=== PATIENT | female | born 1965 | race Caucasian/White ===

== ENCOUNTER 2016-10-27 10:56 | Emergency (ER) ==
[2016-10-27] MEDS ORDERED: XYLOCAINE-MPF 1% INJ ONE (11:20)
[2016-10-27] MEDS ORDERED: DIPHTHERIA/TETANUS ADULT IM ONE (11:20)
--- NOTE | 2016-10-27 12:06 | PROVIDER DOCUMENTATION ---
HPI-Animal/Snake Bite Injury - General Patient arrived via EMS?: No Source: patient - History of Present Illness-Bite Injuries Onset/Duration: abrupt, this morning Timing: reports: still present Locality of Occurance: Home Severity: mild Quality: painful Loss of Consciousness: no loss of consciousness Remembers:: injury, coming to hospital Similar Symptoms Previously?: No Recently seen or treated by another doctor?: No - Animal Bite Bite Injury Location: reports: LUE Animal:: reports: dog Appearance of Animal: appeared well Animal's Immunization Status: UTD Observation/Capture: animal is known/can be observed 10 days Context of Attack: reports: animals fighting (over meat) Severity of Bite Injury: bitten <Milad Richards - Last Filed: 10/27/16 12:00> <Desean Zacarias - Last Filed: 10/27/16 12:16> - General Chief Complaint: Animal Bite Stated Complaint: ANIMAL BITE Time Seen by Provider: 10/27/16 11:11 Allergies/Adverse Reactions: Patient Allergies Allergy/AdvReac Type Severity Reaction Status Date / Time No Known Allergies Allergy Verified 12/16/14 13:17 Home Medications: Home Medication List Medication Instructions Recorded Confirmed Last Taken Type Losartan Potassium 100 mg PO QAM 05/15/13 12/16/14 12/14/14 History Promethazine [Phenergan] 25 mg PO Q4-6H PRN PRN #20 tablet 05/15/13 12/16/14 Unknown Rx Amlodipine Besylate 10 mg PO DAILY 12/16/14 12/16/14 12/14/14 History Cetirizine HCl [Zyrtec] 10 mg PO DAILY 12/16/14 12/16/14 12/14/14 History Cholecalciferol (Vit D3) [Vitamin 5,000 unit PO DAILY 12/16/14 12/16/14 History D3] Cyclobenzaprine [Flexeril] 10 mg PO TID #20 tablet 12/16/14 Unknown Rx Omeprazole 40 mg PO DAILY 12/16/14 12/16/14 12/14/14 History Ondansetron Odt [Zofran 4 mg Odt] 4 mg PO Q6H PRN PRN 12/16/14 12/16/14 History Ondansetron Odt [Zofran 4 mg Odt] 4 mg PO Q6H PRN PRN #20 tablet 12/16/14 Unknown Rx Progesterone [Prometrium] 100 mg PO DIRECTED 12/16/14 12/16/14 Unknown History Sucralfate [Carafate] 1 gm PO BID 12/16/14 12/16/14 12/14/14 History Amoxicillin/Pot Clavulanate 875 mg PO Q12HR #14 tablet 10/27/16 Unknown Rx [Augmentin] Ibuprofen [Motrin] 800 mg PO Q8H PRN PRN #20 tablet 10/27/16 Unknown Rx - History of Present Illness-Bite Injuries Nature of Presenting Problem: patient is a 51 y/o F that presents with dog bite to left hand. patient tried to come between two dogs and meat. (Milad Richards) Review of Systems - Adult - REVIEW OF SYSTEMS - ADULT Constitutional: reports: no symptoms reported Eyes: reports: no symptoms reported Ears, Nose, Mouth & Throat: reports: no symptoms reported Cardiovascular: reports: no symptoms reported Respiratory: reports: no symptoms reported Gastrointestinal: reports: no symptoms reported Genitourinary: reports: no symptoms reported Musculoskeletal: reports: no symptoms reported Integumentary: reports: see HPI Neurological: reports: no symptoms reported Psychiatric: reports: no symptoms reported Endocrine: reports: no symptoms reported Hematologic/Lymphatic: reports: no symptoms reported Allergic/Immunologic: reports: no symptoms reported All Other Systems: Reviewed and Negative <Milad Richards - Last Filed: 10/27/16 12:00> Past History - Adult - PAST MEDICAL HISTORY-ADULT Review of Records: reports: Old Records Reviewed, Nursing Assessment Review, Medications Reviewed Cardiovascular: reports: HTN - PRIOR SURGERIES/PROCEDURES Surgical/Procedure History: reports: cholecystectomy, BTL - FAMILY HISTORY Family History: reviewed, not pertinent - SOCIAL HISTORY Smoking: quit greater than 1 year, cigarettes Living Situation: family <Milad Richards - Last Filed: 10/27/16 12:00> Physical Exam-General - PHYSICAL EXAM-ADULT Initial Vital Signs Reviewed: Yes - CONSTITUTIONAL General Appearance: alert, no apparent distress - EYES Eyes: PERRL/EOMI, pink conjunctivae - HEAD, EARS, NOSE, MOUTH & THROAT HENMT: normocephalic/atraumatic, moist mucous membranes, normal ENT inspection - NECK Neck: full range of motion, normal inspection - RESPIRATORY Respiratory: no respiratory distress, no accessory muscle use - CARDIOVASCULAR Cardiovascular: normal peripheral pulses, regular rate, rhythm - GASTROINTESTINAL (ABDOMEN) Abdominal Exam: non tender - MUSCULOSKELETAL Extremity: no calf tenderness, normal capillary refill, pelvis stable - SKIN Integumentary: warm/dry, laceration(s) (1cm lac to left hand) - NEUROLOGIC Neurologic: grossly normal, no motor/sensory deficits - PSYCHIATRIC Psych/Mental Status: normal mood/affect, normal thought content, normal thought process, oriented x 3 <Milad Richards - Last Filed: 10/27/16 12:00> Progress <Milad Richards - Last Filed: 10/27/16 12:00> <Desean Zacarias - Last Filed: 10/27/16 12:16> - PLAN OF CARE/RESULTS Progress/Plan/Lab Results: Vital Signs Temp Pulse Resp BP Pulse Ox 10/27/16 11:11 97.8 F 83 20 181/101 95 No Known Allergies Allergy (Verified 12/16/14 13:17) Losartan Potassium 100 mg PO QAM 05/15/13 Promethazine [Phenergan] 25 mg PO Q4-6H PRN PRN #20 tablet 05/15/13 Amlodipine Besylate 10 mg PO DAILY 12/16/14 Cetirizine HCl [Zyrtec] 10 mg PO DAILY 12/16/14 Cholecalciferol (Vit D3) [Vitamin D3] 5,000 unit PO DAILY 12/16/14 Cyclobenzaprine [Flexeril] 10 mg PO TID #20 tablet 12/16/14 Omeprazole 40 mg PO DAILY 12/16/14 Ondansetron Odt [Zofran 4 mg Odt] 4 mg PO Q6H PRN PRN 12/16/14 Ondansetron Odt [Zofran 4 mg Odt] 4 mg PO Q6H PRN PRN #20 tablet 12/16/14 Progesterone [Prometrium] 100 mg PO DIRECTED 12/16/14 Sucralfate [Carafate] 1 gm PO BID 12/16/14 Orders Category Date Time Status Suture Tray Set-Up DIRECTED Care 10/27/16 11:20 Active Diphtheria/Tetanus Adult Med 10/27/16 11:20 Discontinued 0.5 ml IM .ONCE ONE Lidocaine 1% Pf [Xylocaine-Mpf 1%] Med 10/27/16 11:20 Discontinued See Dose Instructions INJ NOW ONE pt will be d/c home f/u with pcp (Milad Richards) Procedures - LACERATION/WOUND REPAIR/FB Left Hand Wound Length: 1cm Wound's Depth, Shape: flap Wound Explored/Foreign Body: clean Prepped with: Hibiclens, Kit Utilized, Sterile Drapes Applied Anesthetic: 1%, Lidocaine/Xylocaine Volume of Anesthetic (ml's): 1 Wound Repaired with: Sutures Suture Size/Type: 5.0, Nylon Number of Sutures: 1 (loose ) Sterile Dressing Applied?: No Splint Applied?: No Sling Applied?: No Post Procedure Neurovascular Exam: Intact <Milad Richards - Last Filed: 10/27/16 12:00> Departure <Milad Richards - Last Filed: 10/27/16 12:00> - Departure Time of Disposition Order: 12:14 Certified Medical Emergency: Emergent <Desean Zacarias - Last Filed: 10/27/16 12:16> - Departure DIAGNOSIS: Dog bite Qualifiers: Encounter type: initial encounter Qualified Code(s): W54.0XXA - Bitten by dog, initial encounter Disposition: HOME 01 Condition: Good Additional Instructions: Take medication as prescribed. Keep hand clean and dry. Follow up in 5 days for suture removal. ED Follow Up Instructions: You have been treated by a care provider in the Emergency Department. These instructions are being provided to you so you can have an understanding of how to care for yourself upon discharge. Upon discharge from the Emergency Department, you are responsible for making arrangements for follow-up care by a physician of your choice. Take all prescribed medications as directed. Return to the Emergency Department immediately for any new or worsening symptoms. You may call the Physician Referral phone number at [phone] to obtain a list of Physicians who are taking new patients. Prescriptions: Amoxicillin/Pot Clavulanate [Augmentin] 875 mg PO Q12HR #14 tablet Ibuprofen [Motrin] 800 mg PO Q8H PRN PRN #20 tablet PRN Reason: inflammation Referrals: vAe Briseno CRNP [Primary Care Provider] - Attestation - Scribe Verification/Attestation Scribe:: Milad Richards Acting as Scribe for:: Desean Zacarias Scribe documention review:: This chart was documented by a scribe and accurately reflects the service the provider performed and the decisions made by the provider. - Physician/ CARLOS Attestation Patient care was provided by Advanced Practice Provider:: Yes Advanced Practice Provider:: Desean Zacarias Advanced Practice Provider documentation review:: The Mid-level provider documentation, treatment plan and medical decision making was reviewed by the physician who agrees with all treatment and medical decision making by the MLP. <Milad Richards - Last Filed: 10/27/16 12:00> - Physician/ CARLOS Attestation Patient care was provided by Advanced Practice Provider:: Yes Advanced Practice Provider:: Desean Zacarias Advanced Practice Provider documentation review:: The Mid-level provider documentation, treatment plan and medical decision making was reviewed by the physician who agrees with all treatment and medical decision making by the MLP. <Desean Zacarias - Last Filed: 10/27/16 12:16> Physician Attestation - Physician Attestation I, the provider, attest to the following statement:: Desean Zacarias Physician documentation Attestation:: This documentation recorded by the scribe accurately reflects the service I personally performed and the decisions made by me. <Milad Richards - Last Filed: 10/27/16 12:00>
[2016-10-27] MEDS ORDERED: ZOFRAN ODT PO ONE (12:13)
[2016-10-27] MEDS ORDERED: NORCO-5 PO ONE (12:13)
[2016-10-27 12:50] VITALS: BP 165/98
== END 2016-10-27 12:49 | disposition home or self-care (01) ==
LOC: P.ED 10:56
DX: S61.452A Open bite of left hand, initial encounter (principal); W54.0XXA Bitten by dog, initial encounter; I10 Essential (primary) hypertension; Z87.891 Personal history of nicotine dependence; Z79.899 Other long term (current) drug therapy; Z23 Encounter for immunization
CPT/HCPCS: 90471; 90714